=== PATIENT | female | born 1960 | race Hispanic/Latino ===

== ENCOUNTER → 2017-10-06 | Outpatient (CLI) | payer BC ==
[~2017-10-06] MED LIST: ATORVASTATIN CA10 MG PO; FENOFIBRATE PO; LEVEMIR100 UNIT/1 SQ; LISINOPRIL10 MG PO; MAGNESIUM OXID400 MG PO; METFORMIN HCL500 MG PO; NOVOLOG100 UNITS1 SQ
== END ==
LOC: MAMMO 09:09
PROVIDERS: ATTEND Internal Medicine
DX: Z12.31 Encounter for screening mammogram for malignant neoplasm of breast (principal)
CPT/HCPCS: 77067

== ENCOUNTER → 2017-12-26 | Outpatient (CLI) | payer BC ==
--- NOTE | 2017-12-27 10:08 | Diagnostic Imaging Report ---
#[id number] - MGDXLT #UNILATERAL LEFT DIGITAL DIAGNOSTIC MAMMOGRAM: 12/26/2017 Comparison is made to exams dated: 10/06/2017 mammogram and 10/06/2016 mammogram - [facility]. Current study contains 2 films. There are scattered fibroglandular elements in the left breast. There are benign calcifications in the left breast. The asymmetry identifed on the prior study "presses out" with focal spot compression. No mass or asymmetry is identified. No significant masses, calcifications, or other findings are seen in the breast. There has been no significant interval change. IMPRESSION: BENIGN There is no mammographic evidence of malignancy. A 1 year screening mammogram is recommended. The patient will be notified by letter of the results. Bhupinder Garcia Jr., D.O. cw/:12/26/2017 11:17:32 Franchise Sales Manager: Mariana IRAHETA(R)(M), [facility] letter sent: Compared to Prior B9 Mammogram BI-RADS: 2 Benign
== END ==
LOC: MAMMO 09:38
PROVIDERS: ATTEND Internal Medicine
DX: N63.20 Unspecified lump in the left breast, unspecified quadrant (principal)

== ENCOUNTER → 2019-02-06 | Outpatient (CLI) | payer BC ==
--- NOTE | 2019-02-08 11:10 | Diagnostic Imaging Report ---
#[id number] - [id number] #BILATERAL DIGITAL SCREENING MAMMOGRAM WITH CAD: 02/06/2019 CLINICAL: Routine screening. Comparison is made to exams dated: 12/26/2017 mammogram, 10/06/2017 mammogram and 10/06/2016 mammogram - [facility]. Current study contains 4 films. There are scattered fibroglandular elements in both breasts. Current study was also evaluated with a Computer Aided Detection (CAD) system. Benign appearing calcifications are noted bilaterally. There are benign appearing masses in the right breast which are stable. No significant masses, calcifications, or other findings are seen in either breast. IMPRESSION: BENIGN There is no mammographic evidence of malignancy. A 1 year screening mammogram is recommended. The patient will be notified by letter of the results. IMTIAZ ALARCON M.D. ct/penrad:02/06/2019 17:39:39 Lead Security Officer: Mariana IRAHETA(Luis)(Suha), [facility] letter sent: Normal Exam Mammogram BI-RADS: 2 Benign
== END ==
LOC: MAMMO 08:44
PROVIDERS: ATTEND Internal Medicine
DX: Z12.31 Encounter for screening mammogram for malignant neoplasm of breast (principal)
CPT/HCPCS: 77067

== ENCOUNTER → 2019-06-05 | Outpatient (CLI) | payer BC, OTHER ==
--- NOTE | 2019-06-05 18:12 | Diagnostic Imaging Report ---
EXAM: SP LUMBAR, COMPLETE MIN 4VW, SACRUM X-RAY DATE: 06/05/2019 4:56 PM INDICATION: Lower back pain COMPARISON: None FINDINGS: Lumbar spine: There are 5 nonrib-bearing lumbar-type vertebral bodies. There is no evidence for acute fracture or dislocation. Lower spinal alignment is within normal limits. Bony mineralization is within normal limits. No focal or lytic abnormality is identified. Vertebral body heights are maintained. There are mild/moderate degenerative changes present within the lower lumbar spine, most prominent at L5-S1. The visualized intrapelvic contents and surrounding soft tissues are unremarkable. Sacrum: There is no evidence for acute fracture or dislocation. The bilateral SI joints are unremarkable. The surrounding soft tissues are unremarkable. Phleboliths are noted within the pelvis. The remaining visualized intrapelvic contents are unremarkable. IMPRESSION: No acute radiographic abnormality identified within the lumbar spine or sacrum. Signed by: Dr. Blayne Martell MD on 06/05/2019 6:09 PM
== END ==
LOC: RAD 16:40
PROVIDERS: ATTEND Internal Medicine
DX: M54.42 Lumbago with sciatica, left side (principal)
CPT/HCPCS: 72110; 72220

== ENCOUNTER → 2020-03-10 | Outpatient (CLI) | payer BC | LOC: MAMMO 11:06 → MERGE 11:06 | PROVIDERS: ATTEND Internal Medicine | DX: Z12.31 Encounter for screening mammogram for malignant neoplasm of breast (principal) | CPT/HCPCS: 77067 ==